=== PATIENT | female | born 1990 | race Caucasian/White ===

== ENCOUNTER 2021-04-08 07:31 | Emergency (ER) | payer BC ==
[2021-04-08 08:48] LABS: HEMOGLOBIN 13.9 gm/dl (12.3-15.3); RED BLOOD COUNT 4.66 M/UL (4.00-5.10); WHITE BLOOD COUNT 8.1 K/UL (4.5-11.0)
[2021-04-08 09:08] LABS: BUN/CREATININE RATIO 17 (0-10)
[2021-04-08] MEDS ORDERED: ZOFRAN ODT 4 MG4 MG PO (10:12)
== END 2021-04-08 10:40 | disposition home or self-care (01) ==
LOC: ER1 07:31
PROVIDERS: Family Medicine
DX: R10.9 Unspecified abdominal pain (principal); R10.821 Right upper quadrant rebound abdominal tenderness; R10.822 Left upper quadrant rebound abdominal tenderness; R53.83 Other fatigue; Z20.822 Contact with and (suspected) exposure to COVID-19; R50.9 Fever, unspecified; M79.10 Myalgia, unspecified site
CPT/HCPCS: 0240U; 71045; 80053; 81001; 83690; 84703; 85025; 96374; 96375; 99283; J1885; J2405

== ENCOUNTER 2021-05-27 18:12 | Emergency (ER) | payer BC ==
[~2021-05-27 18:12] MED LIST: ZOFRAN ODT 4 MG4 MG PO
[2021-05-27 21:04] LABS: HEMOGLOBIN 13.7 gm/dl (12.3-15.3); RED BLOOD COUNT 4.39 M/UL (4.00-5.10); WHITE BLOOD COUNT 8.8 K/UL (4.5-11.0)
[2021-05-27 21:32] LABS: BUN/CREATININE RATIO 20 (0-10)
[2021-05-27] MEDS ORDERED: VISTARIL 50 MG50 MG PO (22:46)
== END 2021-05-27 23:26 | disposition home or self-care (01) ==
LOC: ER1 18:12
PROVIDERS: Physician Assistant
DX: R00.2 Palpitations (principal); R07.89 Other chest pain; Z90.49 Acquired absence of other specified parts of digestive tract; Z88.1 Allergy status to other antibiotic agents
CPT/HCPCS: 71045; 80053; 82550; 82553; 83874; 84439; 84443; 84484; 84703; 85025; 93005; 93242; 99285; Q0177

== ENCOUNTER 2021-06-15 03:02 | Emergency (ER) | payer BC ==
[~2021-06-15 03:02] MED LIST changes: +VISTARIL 50 MG50 MG PO
[2021-06-15 04:18] LABS: BUN/CREATININE RATIO 25 (0-10)
== END 2021-06-15 06:00 | disposition home or self-care (01) ==
LOC: ER1 03:02
PROVIDERS: Family Medicine
DX: R00.2 Palpitations (principal); R20.2 Paresthesia of skin
CPT/HCPCS: 80048; 82550; 82553; 83874; 84484; 93005; 99285